=== PATIENT | female | born 1995 | race Two or more races ===

== ENCOUNTER 2017-10-15 09:44 | Outpatient (CLI) | payer OTHER | END 2017-10-15 15:23 | disposition home or self-care (01) | LOC: MRI 09:44 | DX: G40.309 Generalized idiopathic epilepsy and epileptic syndromes, not intractable, without status epilepticus (principal) | CPT/HCPCS: 70553 ==

== ENCOUNTER 2018-02-24 09:02 | Emergency (ER) | payer OTHER ==
[~2018-02-24] VITALS: Ht 162.6 cm; Wt 49.9 kg
== END 2018-02-24 22:22 | disposition home or self-care (01) ==
LOC: ER 09:02
DX: G40.89 Other seizures (principal)

== ENCOUNTER 2018-03-14 09:33 | Outpatient (CLI) | payer OTHER | END 2018-03-14 09:44 | disposition home or self-care (01) | LOC: LAB 09:33 | DX: G40.309 Generalized idiopathic epilepsy and epileptic syndromes, not intractable, without status epilepticus (principal); C40 Malignant neoplasm of bone and articular cartilage of limbs; Z51.81 Encounter for therapeutic drug level monitoring ==

== ENCOUNTER 2018-03-20 13:46 | Outpatient (CLI) | payer OTHER | END 2018-03-20 14:05 | disposition home or self-care (01) | LOC: MRI 13:46 | DX: G40.309 Generalized idiopathic epilepsy and epileptic syndromes, not intractable, without status epilepticus (principal) | CPT/HCPCS: 70553 ==

== ENCOUNTER 2018-08-05 14:44 | Outpatient (CLI) | payer OTHER | END 2018-08-05 15:25 | disposition home or self-care (01) | LOC: LAB 14:44 | DX: G93.81 Temporal sclerosis (principal); Z11.3 Encounter for screening for infections with a predominantly sexual mode of transmission; E06.9 Thyroiditis, unspecified; G40.89 Other seizures; G40.209 Localization-related (focal) (partial) symptomatic epilepsy and epileptic syndromes with complex partial seizures, not intractable, without status epilepticus; E28.2 Polycystic ovarian syndrome; E78.89 Other lipoprotein metabolism disorders ==

== ENCOUNTER 2022-04-05 12:23 | Emergency (ER) | payer OTHER ==
[~2022-04-05] VITALS: Ht 165.1 cm; Wt 47.6 kg
[2022-04-05] MEDS ORDERED: OXCARBAZEPINE300 MG PO (12:40)
[2022-04-05] MEDS ORDERED: FOLIC ACID1 MG PO (12:40)
[2022-04-05] MEDS ORDERED: DIVALPROEX SOD500 MG PO (12:40)
[2022-04-05] MEDS ORDERED: OXCARBAZEPINE600 MG PO (12:40)
[2022-04-05] MEDS ORDERED: ATIVAN1 M1 PO (16:26)
== END 2022-04-05 18:57 ==
LOC: ER 12:23
DX: G40.909 Epilepsy, unspecified, not intractable, without status epilepticus (principal)